=== PATIENT | male | born 1995 | race Two or more races ===

== ENCOUNTER 2016-05-12 02:16 | Emergency (ER) | payer SELFPAY ==
[2016-05-12] MEDS ORDERED: IPRATROPIUM/ALBUTEROL SULFATE 3 ML AMPUL.NEB NEB ONE ×2 (02:19→02:20)
--- NOTE | 2016-05-12 02:23 | ED Physician Documentation ---
General Adult - HISTORIAN Historian: patient - HPI Stated Complaint: sob Chief Complaint: General Adult Additional Information: Known asthmatic with wheezing for two days. Fever last night to 101.5. Back sore , tight, he thinks from coughing. Last albuterol neb 30 minutes ago and it didn' t help. No hospitalizations, intubations, for asthma. - ROS CONST: fever - PAST HX Past History: asthma Other History: none Surgeries/Procedures: none Allergies/Adverse Reactions: Allergies Allergy/AdvReac Type Severity Reaction Status Date / Time No Known Allergies Allergy Verified 05/12/16 02:26 Home Medications: Ambulatory Orders Medication Instructions Recorded Albuterol Sulfate [Proair HFA] 1 inh INH DIRECTED PRN 05/12/16 Albuterol Sulfate [Ventolin HFN] 1 appl INH DIRECTED PRN 05/12/16 predniSONE [Deltasone] 10 mg PO DAILY #6 tablet 05/12/16 - SOCIAL HX Smoking History: non-smoker Alcohol Use: none Drug Use: none - FAMILY HX Family History: No - REVIEWED ASSESSMENTS Nursing Assessment Reviewed: Yes Vitals Reviewed: Yes Progress - Progress Progress: Chest 2 views History: Fever and asthma Findings: The lungs are clear. No pleural effusions are observed. Heart size and pulmonary vascularity are normal. Osseous structures are unremarkable. Impression: Normal chest. Electronically signed on May 12, 2016 2:55:33 AM FILTER OPERATOR by: Vince Briggs Moving much more air, less wheezing after nebs. Feels he is improved enough to go home. ED Results Lab/Radiology - Orders Orders: ED Orders Category Date Time Status CHEST P.A.&LAT 2 VIEWS [RAD] Stat Exams 05/12/16 Ordered GRP A STREP SCREEN Stat Lab 05/12/16 Ordered INFLUENZA A&B Stat Lab 05/12/16 Uncollected Ipratropium/Albuterol Sulfate [Duoneb] Med 05/12/16 02:19 Discontinued 3 ml NEB .STK-MED ONE Ipratropium/Albuterol Sulfate [Duoneb] Med 05/12/16 02:20 Once 3 ml NEB NOW ONE General Adult Physical Exam - PHYSICAL EXAM GENERAL APPEARANCE: mild distress EENT: eye inspection normal, ENT inspection normal, pharyngeal erythema NECK: normal inspection, supple RESPIRATORY: breath sounds normal (but decreased throughout), wheezes ( throughout, moderate pitch) CVS: reg rate & rhythm, no murmur RECTAL: deferred BACK: normal inspection SKIN: warm/dry, normal color EXTREMITIES: normal range of motion (gait ), no evidence of injury NEURO: CN's nml as tested, motor nml, sensation nml, cognition normal Discharge Clincal Impression: Asthma attack Additional Instructions: Return to the ER with increased difficulty breathing. Home Medications: Ambulatory Orders Albuterol Sulfate [Proair HFA] 1 inh INH DIRECTED PRN 05/12/16 Albuterol Sulfate [Ventolin HFN] 1 appl INH DIRECTED PRN 05/12/16 predniSONE [Deltasone] 10 mg PO DAILY #6 tablet 05/12/16 Condition: Good Disposition: 01 HOME, SELF-CARE Decision to Admit: NO Decision Time: 03:03
[2016-05-12] MEDS ORDERED: BUDESONIDE 0.5MG/2ML AMPUL.NEB NEB ONE (02:24)
[2016-05-12] MEDS ORDERED: predniSONE 10 MG TABLET PO ONE (02:24)
[2016-05-12 03:22] VITALS: BP 145/75
--- NOTE | 2016-05-12 06:44 | Diagnostic Imaging Report ---
Report Submission Date: May 12, 2016 2:55:[address] Patient ~ Study Name: STEFF ORTIZ ~ Date: May 12, 2016 2:37:[address] ~ Modality Type: CR Gender: M ~ Description: CHEST : 89 ~ Institution: [facility] Physician: RAHUL HOWELL ~ ~ ~ ~ Chest 2 views History: Fever and asthma Findings: The lungs are clear. No pleural effusions are observed. Heart size and pulmonary vascularity are normal. Osseous structures are unremarkable. Impression: Normal chest. ~ Electronically signed on May 12, 2016 2:55:[address] by: Vince SORENSEN
== END 2016-05-12 03:10 | disposition home or self-care (01) ==
LOC: ED 02:16
DX: J45.909 Unspecified asthma, uncomplicated (principal)
CPT/HCPCS: 71020; 87070; 87400; 87880; 99282; 99283; J7626; J7512

== ENCOUNTER 2017-03-10 21:53 | Emergency (ER) | payer OTHER ==
[2017-03-10] MEDS ORDERED: ALBUTEROL SULFATE 2.5 MG/3 ML AMPUL.NEB NEB ONE ×2 (22:00)
[2017-03-10] MEDS ORDERED: SODIUM CHLORIDE 3 ML VIAL.NEB IH ONE (22:00)
--- NOTE | 2017-03-10 22:18 | ED Physician Documentation ---
Wheezing - HISTORIAN Historian: patient - HPI Stated Complaint: "SOA" Chief Complaint: Wheezing Onset: days ago Duration: worse Initiating Event: out of meds (advair) Associated Symptoms:: shortness of breath Further Comments: yes (21 year old male patient presents with complaints of wheezing. States he is out of his advair, reports using his nebulizer earlier today "it didn't help". 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 Patient states he is out of his advair, does not take a daily allergy medication.) - ROS CONST: no problems EYES/ENT: denies: eye redness, eye itching, sore throat, runny nose, other CVS: denies: heart racing, palpitations, other GI/: denies: none, abdominal pain, problems urinating, vomiting, nausea, other MS/SKIN/LYMPH: denies: ankle swelling, leg pain, rash, swollen glands, leg swelling, calf pain, other NEURO/PSYCH: denies: headache, dizziness, light-headedness, anxiety, tingling hands, muscle spasms hands, tingling face, muscle spasms face, other - PAST HX Asthma: occasional attacks Lung Disease: asthma Surgeries/Procedures: none Allergies/Adverse Reactions: Allergies Allergy/AdvReac Type Severity Reaction Status Date / Time No Known Allergies Allergy Verified 03/10/17 22:04 Home Medications: Ambulatory Orders Medication Instructions Recorded Albuterol Sulfate [Proair HFA] 1 inh INH DIRECTED PRN 05/12/16 Albuterol Sulfate [Ventolin HFN] 1 appl INH DIRECTED PRN 05/12/16 Albuterol Sulfate [ProAir 1 puff INH Q4H PRN #1 inhaler 03/10/17 RespiClick] Fluticasone/Salmeterol [Advair 1 each IH DAILY 03/10/17 100-50 Diskus] - SOCIAL HX Smoking History: non-smoker - FAMILY HX Family History: denies: emphysema - VITAL SIGNS Vital Signs: Vital Signs Temp Pulse Resp BP Pulse Ox 98.6 F 100 H 16 142/78 95 03/10/17 21:53 03/10/17 21:53 03/10/17 21:53 03/10/17 21:53 03/10/17 21:53 - REVIEWED ASSESSMENTS Nursing Assessment Reviewed: Yes Vitals Reviewed: Yes Wheezing Physical Exam - EXAM General Appearance: mild distress EENT: eye inspection normal, MIHIR Respiratory: no pain on inspiration, speaks full sentences, wheezes (faint expiratory ), no pleuritic chest pain CVS: reg rate & rhythm, heart sounds normal, equal pulses, no murmur, no gallop , PMI nml, no JVD, no friction rub, 24 Abdomen: non-tender, no organomegaly, nml bowel sounds, no distention Skin: color nml, no rash, warm, nml palp., dry Extremities: non-tender, normal range of motion, no evidence of injury, no edema , J, 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 Neuro/Psych: oriented x3, neuro intact, mood/affect nml, CN's nml as tested ED Results Lab/Radiology - Orders Orders: ED Orders Category Date Time Status Albuterol Sulfate [Ventolin] Med 03/10/17 22:00 Discontinued 2.5 mg NEB .STK-MED ONE Sodium Chloride For Inhalation [Dey] Med 03/10/17 22:00 Discontinued 3 ml IH .STK-MED ONE Discharge Clincal Impression: Asthma exacerbation Qualifiers: Asthma severity: mild Asthma persistence: unspecified Qualified Code(s): J45.901 - Unspecified asthma with (acute) exacerbation Prescriptions: Albuterol Sulfate [ProAir RespiClick] 1 puff INH Q4H PRN #1 inhaler PRN Reason: Wheezing Referrals: Primary Doctor,No [Primary Care Provider] - 2 Days Condition: Stable Disposition: 01 HOME, SELF-CARE Decision to Admit: NO Decision Time: 22:30
[2017-03-10 22:48] VITALS: BP 140/78
== END 2017-03-10 22:28 | disposition home or self-care (01) ==
LOC: ED 21:53
DX: J45.901 Unspecified asthma with (acute) exacerbation (principal)
CPT/HCPCS: 99283

== ENCOUNTER 2017-08-06 08:10 | Emergency (ER) | payer OTHER ==
[2017-08-06] MEDS ORDERED: IPRATROPIUM/ALBUTEROL SULFATE 3 ML AMPUL.NEB NEB ONE ×2 (08:16→08:55)
[2017-08-06] MEDS ORDERED: BUDESONIDE 0.5MG/2ML AMPUL.NEB NEB ONE ×2 (08:18→08:19)
[2017-08-06] MEDS ORDERED: predniSONE 10 MG TABLET PO ONE (08:18)
--- NOTE | 2017-08-06 08:23 | ED Physician Documentation ---
General Adult - HISTORIAN Historian: patient - HPI Stated Complaint: asthma Chief Complaint: General Adult Additional Information: wheezing for two days. Has had two duonebs this am but no better; last one at 0730. Denies fevers, sweats. Has seasonal allergies and takes daily advair and claritin. Thinks he has sinus congestion now. HX two hospitalizations for asthma ; no intubation. - ROS CONST: denies: fever, sweating - PAST HX Past History: asthma Other History: none Surgeries/Procedures: none Allergies/Adverse Reactions: Allergies Allergy/AdvReac Type Severity Reaction Status Date / Time No Known Allergies Allergy Verified 08/06/17 08:27 Home Medications: Ambulatory Orders Medication Instructions Recorded Albuterol Sulfate [Proair HFA] 1 inh INH DIRECTED PRN 05/12/16 Albuterol Sulfate [Ventolin HFN] 1 appl INH DIRECTED PRN 05/12/16 Albuterol Sulfate [ProAir 1 puff INH Q4H PRN #1 inhaler 03/10/17 RespiClick] Fluticasone/Salmeterol [Advair 1 each IH DAILY 03/10/17 100-50 Diskus] Azithromycin [Zithromax] 250 mg PO DAILY #6 tablet 08/06/17 Fluticasone/Salmeterol [Advair 1 each INH DAILY #1 ea 08/06/17 250-50 Diskus] predniSONE [Deltasone] 20 mg PO DAILY #7 tablet 08/06/17 - SOCIAL HX Smoking History: non-smoker - FAMILY HX Family History: No - VITAL SIGNS Vital Signs: Vital Signs Temp Pulse Resp BP Pulse Ox 140/78 03/10/17 22:28 - REVIEWED ASSESSMENTS Nursing Assessment Reviewed: Yes Vitals Reviewed: Yes Progress - Progress Progress: Patient Study Name: STEFF ORTIZ Date: Aug 06, 2017 8:31:44 AM CDT Modality Type: DX Gender: M Description: CHEST : 89 Institution: [facility] Physician: LYNDA KAY - LANETTE Examination: PA and lateral chest. History: Evaluate lung dalton. CXR, SOA/ WHEEZING FOR OVER A WEEK, PT STATES HX OF ASTHMA AND USE OF INHALER (Hx) Comparison exam: 12 May 2016 Findings: PA lateral chest demonstrate a normal cardiac and mediastinal silhouette. No focal infiltrate. No blunting of the costophrenic margins. Osseous structures are appropriate for age. Impression: No acute pulmonary process. Electronically signed on Aug 06, 2017 8:52:08 AM CDT by: Brown Mishra Feels better after budesonide neb. ED Results Lab/Radiology - Orders Orders: ED Orders Category Date Time Status CHEST 2VIEW [RAD] Stat Exams 08/06/17 Ordered Budesonide [Pulmicort] Med 08/06/17 08:18 Discontinued 0.5 mg NEB .STK-MED ONE Budesonide [Pulmicort] Med 08/06/17 09:00 Ordered 0.5 mg NEB BID Budesonide [Pulmicort] Med 08/06/17 08:19 Discontinued 0.5 mg NEB BID ONE Ipratropium/Albuterol Sulfate [Duoneb] Med 08/06/17 08:16 Discontinued 3 ml NEB .STK-MED ONE predniSONE [Deltasone] Med 08/06/17 08:18 Discontinued 10 mg PO NOW ONE General Adult Physical Exam - PHYSICAL EXAM GENERAL APPEARANCE: mild distress EENT: eye inspection normal, ENT inspection normal, pharynx normal (Mallampati 2 ) NECK: normal inspection, supple RESPIRATORY: wheezes (fine, throughout), other (decreased throughout) CVS: reg rate & rhythm, heart sounds normal, no murmur BACK: normal inspection, no CVA tenderness (no vertebral tenderness) SKIN: warm/dry, normal color EXTREMITIES: normal range of motion (gait and stance), no evidence of injury NEURO: CN's nml as tested, motor nml, sensation nml, cognition normal Discharge Clincal Impression: Wheezing Referrals: Primary Doctor,No [Primary Care Provider] - 2 Days Additional Instructions: Drink plenty of water. Return to the ER if your condition worsens. Condition: Good Disposition: 01 HOME, SELF-CARE Decision to Admit: NO Decision Time: 08:55
[2017-08-06] MEDS ORDERED: BUDESONIDE 0.5MG/2ML AMPUL.NEB NEB SCH (09:00)
[2017-08-06 09:33] VITALS: BP 132/69
--- NOTE | 2017-08-06 19:01 | Diagnostic Imaging Report ---
LYNDA KAY [facility] [address] [facility] [address] [place] [address]. [id number] Report Submission Date: Aug 06, 2017 8:52:08 AM CDT Patient Study Name: STEFF ORTIZ Date: Aug 06, 2017 8:31:44 AM CDT Modality Type: DX Gender: M Description: CHEST : 89 Institution: [facility] Physician: LYNDA KAY Examination: PA and lateral chest. History: Evaluate lung dalton. CXR, SOA/ WHEEZING FOR OVER A WEEK, PT STATES HX OF ASTHMA AND USE OF INHALER (Hx) Comparison exam: 12 May 2016 Findings: PA lateral chest demonstrate a normal cardiac and mediastinal silhouette. No focal infiltrate. No blunting of the costophrenic margins. Osseous structures are appropriate for age. Impression: No acute pulmonary process. Electronically signed on Aug 06, 2017 8:52:08 AM CDT by: Brown SORENSEN
== END 2017-08-06 09:25 | disposition home or self-care (01) ==
LOC: ED 08:10
DX: R06.2 Wheezing (principal)
CPT/HCPCS: 71046; J7512; J7626; 94640; 99284

== ENCOUNTER 2018-01-04 15:30 | Emergency (ER) | payer SELFPAY ==
[2018-01-04] MEDS ORDERED: IPRATROPIUM/ALBUTEROL SULFATE 3 ML AMPUL.NEB NEB ONE (16:08)
[2018-01-04] MEDS ORDERED: methylPREDNISolone SOD SUCC 125 MG/2 ML VIAL IM ONE (16:20)
--- NOTE | 2018-01-04 16:26 | ED Physician Documentation ---
Sore Throat/Dental Pain - HISTORIAN Historian: patient - HPI Stated Complaint: sore throat Chief Complaint: Sore Throat Onset: days ago (4) Associated Symptoms: fever, chills, sore throat, mild, cough (occasional ). denies: severe, unable to swallow, runny nose, congestion, R ear pain, L ear pain - ROS CONST: recent illness CVS/RESP: none. 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 pt presents to the ED via POV c/o sore throat, fever 102 x 4 days. pt reports hx of asthma for which he takes albuterol Neb/ Inhaler, advair once a day. pt reports his asthma is a bit worse than usual. pt is eupneic, VSS at this time. 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 pt presents to the ED via POV c/o sore throat, fever 102 x 4 d ays. pt reports hx of asthma for which he takes albuterol Neb/ Inhaler, advair once a day. pt reports his asthma is a bit worse than usual. pt is eupneic, VSS at this time. 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 (Lalitha Greer) - PAST HX Allergies/Adverse Reactions: Allergies Allergy/AdvReac Type Severity Reaction Status Date / Time No Known Allergies Allergy Verified 01/04/18 16:42 Home Medications: Ambulatory Orders Medication Instructions Recorded Albuterol Sulfate [Ventolin HFN] 1 appl INH DIRECTED PRN 05/12/16 Albuterol Sulfate [Proair HFA] 1 puff IH PRN PRN 01/04/18 Albuterol Sulfate [Ventolin HFN] 2.5 mg NEB Q4 #60 vial 01/04/18 Cephalexin [Keflex] 500 mg PO 12HS #20 capsule 09/25/18 Prednisone 10 mg PO 1T 6 Days tab.ds.pk 01/04/18 - VITAL SIGNS Vital Signs: Vital Signs Temp Pulse Resp BP Pulse Ox 99.3 F 92 H 16 128/74 97 01/04/18 15:31 01/04/18 18:20 01/04/18 18:20 01/04/18 18:20 01/04/18 18:20 Progress - Progress Progress: 1625 Post DuoNeb Pt wheezing decreased. (Saad Aguayo) 1625 Post DuoNeb Pt wheezing decreased. CXR: No acute cardiopulmonary process. (Lalitha Greer) ED Results Lab/Radiology - Radiology Radiology Impressions: Examination: PA and lateral chest. History: Evaluate lung dalton. COUGH X 4 DAYS ASTHMA SOA (Hx) Comparison exam: 06 August 2017 Findings: PA and lateral views of the chest demonstrates a normal cardiac and mediastinal silhouette. No focal infiltrate. No blunting of the costophrenic margins. Osseous structures are appropriate for age. Impression: No acute pulmonary process. (Saad Aguayo) Examination: PA and lateral chest. History: Evaluate lung dalton. COUGH X 4 DAYS ASTHMA SOA (Hx) Comparison exam: 06 August 2017 Findings: PA and lateral views of the chest demonstrates a normal cardiac and mediastinal silhouette. No focal infiltrate. No blunting of the costophrenic margins. Osseous structures are appropriate for age. Impression: No acute pulmonary process. (Lalitha Greer) - Orders Orders: ED Orders Category Date Time Status CHEST 2VIEW [RAD] Stat Exams 01/04/18 Completed Ipratropium/Albuterol Sulfate [Duoneb] Med 01/04/18 16:08 Discontinued 3 ml NEB NOW ONE methylPREDNISolone SOD SUCC [Solu-MEDROL] Med 01/04/18 16:20 Discontinued 125 mg IM NOW ONE HI FLOW NEBULIZER TX - INITIAL Routine Ther 01/04/18 Completed HIGH FLOW NEBULIZER Routine Ther 01/04/18 Completed OXIMETRY-SINGLE CHECK Routine Ther 01/04/18 Completed Sore throat Physical Exam - EXAM General Appearance: no acute distress, alert Head/Neck: trachea midline, cervical lymphadenopathy. No: pain over sinuses, maxillary swelling (R), maxillary swelling (L), neck mass/swelling, stiff neck, pain on palpation (R), pain on palpation (L) Eyes: eyes nml inspection Mouth/Throat: lips nml, gums nml, pharyngeal erythema, tonsillar exudate, tonsillar swelling Ear/Nose: nml inspection Respiratory: no resp. distress, wheezes CVS: reg. rate & rhythm, tachycardia Abdomen: soft, no organomegaly, normal bowel sounds Extremities: non-tender Skin: warm/dry Neuro/Psych: oriented x3 Discharge Decision to Admit: NO Date of Decison to Admit: 01/04/18 Decision Time: 17:10 Clincal Impression: Acute exacerbation of mild persistent extrinsic asthma Prescriptions: Albuterol Sulfate [Ventolin HFN] 2.5 mg NEB Q4 #60 vial Cephalexin [Keflex] 500 mg PO 12HS #20 capsule Prednisone 10 mg PO 1T 6 Days tab.ds.pk Referrals: Primary Doctor,No [Primary Care Provider] - 2 Days Additional Instructions: increase advair to twice a day rest increase fluids Seek medical care if worsening symptoms: increased shortness of breath, chest pain, feeling faint or passing out, or any concern Prednisone dose pack: take taper fashion as directed on package Keflex 500 mg twice a day for 10 days albuterol nebs q 4 hrs PRN shortness of breath Follow up with primary care in one week or before if worse Condition: Good Disposition: 01 HOME, SELF-CARE
--- NOTE | 2018-01-04 17:48 | Diagnostic Imaging Report ---
ALFREDITO MCCRACKEN [facility] [address] [facility] [address] [address] Report Submission Date: Jan 04, 2018 4:58:07 PM CDT Patient Study Name: STEFF ORTIZ Date: Jan 04, 2018 4:32:33 PM CDT Modality Type: DX Gender: M Description: CHEST : 89 Institution: [facility] Physician: ALFREDITO MCCRACKEN Examination: PA and lateral chest. History: Evaluate lung dalton. COUGH X 4 DAYS ASTHMA SOA (Hx) Comparison exam: 06 August 2017 Findings: PA and lateral views of the chest demonstrates a normal cardiac and mediastinal silhouette. No focal infiltrate. No blunting of the costophrenic margins. Osseous structures are appropriate for age. Impression: No acute pulmonary process. Electronically signed on Jan 04, 2018 4:58:07 PM CDT by: Brown SORENSEN
[2018-01-04 18:21] VITALS: BP 128/74
== END 2018-01-04 17:30 | disposition home or self-care (01) ==
LOC: ED 15:30
DX: J45.31 Mild persistent asthma with (acute) exacerbation (principal); J02.9 Acute pharyngitis, unspecified
CPT/HCPCS: 71046; 94640; 94760; J2930; 96372; 99283

== ENCOUNTER 2019-02-21 16:32 | Emergency (ER) | payer OTHER ==
[2019-02-21] MEDS: IPRATROPIUM/ALBUTEROL SULFATE 3 ML AMPUL.NEB NEB ONE ×2 (16:45→16:58)
[2019-02-21] MEDS: methylPREDNISolone SOD SUCC 125 MG/2 ML VIAL IVP ONE (16:48)
[2019-02-21 16:52] LABS: BASOPHILS % 0.9 % (0.0-1.5); NEUTROPHILS # 4.7 # k/uL (1.4-7.7)
[2019-02-21 16:57] VITALS: BP 141/82
[2019-02-21 17:05] LABS: eGFR (Non-African) > 60
--- NOTE | 2019-02-21 17:08 | Diagnostic Imaging Report ---
PATIENT MR#: [id number] PATIENT PATIENT NAME: STEFF ORTIZ DATE OF : 1995 REFERRING PHYSICIAN: Key Li EXAM DATE: 02/21/2019 ACCESSION NUMBER: [id number] EXAM DESCRIPTION: CHEST 2VIEW Examination: PA and lateral chest. History: Evaluate lung dalton. The comparison exam: 04 January 2018 Findings: PA and lateral views of the chest demonstrates a normal cardiac and mediastinal silhouette. No focal infiltrate. No blunting of the costophrenic margins. Osseous structures are appropriate for age. Impression: No acute pulmonary process. Read by: Dr. Brown Mishra Transcribed by: Transcribed Date: Electronically signed by: Dr. Brown Mishra Date signed: 02/21/2019 5:07:39 PM
--- NOTE | 2019-02-21 17:12 | ED Physician Documentation ---
Asthma - HISTORIAN Historian: patient - HPI Stated Complaint: SOA Chief Complaint: Asthma Onset: days ago (3) Duration: continues in ED Initiating Event: upper respiratory illness (recently stopped a zpack for broncitits ) Associated Symptoms:: shortness of breath, tightness. denies: fever, sweating, trouble breathing, hurts to breath, productive cough, chest discomfort, chest pain Current Asthma Therapy: inhaled MDI, albuterol inhaler Further Comments: yes (He reports about one month ago he was started on zpack for bronchtitis he is a know asthmatic and denies any fever) - ROS CONST: recent illness GI/: none NEURO/PSYCH: denies: headache - PAST HX Asthma: frequent attacks Lung Disease: asthma DVT/PE Risk Factors: none Other History: denies: cardiac disease, CHF, CAD, angina, AMI, diabetes Type 1, diabetes Type 2 Surgeries/Procedures: none Immunizations: UTD Allergies/Adverse Reactions: Allergies Allergy/AdvReac Type Severity Reaction Status Date / Time No Known Allergies Allergy Verified 02/21/19 16:51 Home Medications: Ambulatory Orders Medication Instructions Recorded Albuterol Sulfate [Ventolin HFN] 1 appl INH DIRECTED PRN 05/12/16 Albuterol Sulfate [Proair HFA] 1 puff IH PRN PRN 01/04/18 Albuterol Sulfate [Ventolin HFN] 2.5 mg NEB Q4 #60 vial 01/04/18 - SOCIAL HX Smoking History: non-smoker Alcohol Use: none Drug Use: none - FAMILY HX Family History: denies: emphysema, asthma, CAD - VITAL SIGNS Vital Signs: Vital Signs Temp Pulse Resp BP Pulse Ox 98.3 F 85 16 141/82 98 02/21/19 16:32 02/21/19 16:32 02/21/19 16:32 02/21/19 16:32 02/21/19 16:32 - REVIEWED ASSESSMENTS Nursing Assessment Reviewed: Yes Vitals Reviewed: Yes Progress - Progress Progress: 1710: continued mild wheezing on left lower lobe - he feels that it is helping DG 1735: discussed results and plan he is agreeable DG ED Results Lab/Radiology - Lab Results Lab Results: Lab Results 02/21/19 02/21/19 16:46 16:46 WBC 9.00 K/ul K/ul (4.00-12.00) RBC 5.36 M/ul H M/ul (3.90-5.20) Hgb 17.4 g/dL g/dL (12.0-18.0) Hct 51.9 % % (37.0-53.0) MCV 97.0 fl fl (80.0-100.0) MCH 32.4 pg pg (28.0-34.0) MCHC 33.5 g/dL g/dL (30.0-36.0) RDW 11.1 % L % (11.3-14.3) Plt Count 274 K/mm3 K/mm3 (130-400) Neut % (Auto) 52.0 % % (39.0-79.0) Lymph % (Auto) 32.4 % % (16.0-50.0) Amelia % (Auto) 6.0 % % (0.0-11.0) Eos % (Auto) 8.7 % H % (0.0-6.8) Baso % (Auto) 0.9 % % (0.0-1.5) Neut # (Auto) 4.7 # k/uL # k/uL (1.4-7.7) Lymph # (Auto) 2.9 # k/uL # k/uL (0.6-4.0) Amelia # (Auto) 0.5 # k/uL # k/uL (0.0-0.9) Eos # (Auto) 0.8 # k/uL H # k/uL (0.0-0.6) Baso # (Auto) 0.1 # k/uL # k/uL (0.0-0.5) Sodium 142 mmol/L mmol/L (137-145) Potassium 4.0 mmol/L mmol/L (3.5-5.1) Chloride 103 mmol/L mmol/L (98-107) Carbon Dioxide 28 mmol/L mmol/L (22-30) Anion Gap 15.0 BUN 10 mg/dL mg/dL (9-20) Creatinine 0.82 mg/dL mg/dL (0.66-1.25) Estimated Creat Clear 169 Est GFR ( Amer) > 60 (60 - ) Est GFR (Non-Af Amer) > 60 (60 - ) Glucose 99 mg/dL mg/dL (74-106) Calcium 9.8 mg/dL mg/dL (8.4-10.2) Total Bilirubin 0.5 mg/dL mg/dL (0.2-1.3) AST 66 U/L H U/L (15-46) ALT 121 U/L H U/L (0-50) Alkaline Phosphatase 107 U/L U/L (38-126) Total Protein 8.5 g/dL H g/dL (6.3-8.2) Albumin 4.7 g/dL g/dL (3.5-5.0) - Orders Orders: ED Orders Category Date Time Status IV Started NOW Care 02/21/19 16:39 Active CHEST 2VIEW [RAD] Stat Exams 02/21/19 Completed CBC/PLATELET/DIFF Stat Lab 02/21/19 16:46 Completed CMP Stat Lab 02/21/19 16:46 Completed Ipratropium/Albuterol Sulfate [Duoneb] Med 02/21/19 16:35 Discontinued 3 ml NEB .STK-MED ONE Ipratropium/Albuterol Sulfate [Duoneb] Med 02/21/19 16:38 Discontinued 3 ml NEB NOW ONE methylPREDNISolone SOD SUCC [SOLU-Medrol] Med 02/21/19 16:38 Discontinued 125 mg IVP NOW ONE Asthma Physical Exam - EXAM General Appearance: no acute distress, alert EENT: eye inspection normal, ENT inspection normal, pharynx normal, no signs of dehydration Neck: nml inspection Respiratory: no resp. distress, speaks full sentences, wheezes. No: no pain on inspiration, respiratory distress CVS: reg rate & rhythm, heart sounds normal Abdomen: non-tender Skin: color nml, no rash Extremities: non-tender, normal range of motion, no evidence of injury, no edema Neuro/Psych: oriented x3 Discharge Clincal Impression: Wheezing Referrals: Primary Doctor,No [Primary Care Provider] - 2 Days Comments: 1. Prednisone 20 mg take 1 by mouth daily x 5 days and 10 mg daily x 5 days and 5 mg daily x 5 days 2. Follow up with PCP in 2-4 days 3. Return to ER for any increased concerns Condition: Stable Disposition: 01 HOME, SELF-CARE Decision to Admit: NO Date of Decison to Admit: 02/21/19 Decision Time: 17:40
[2019-02-21] MEDS: ALBUTEROL SULFATE 2.5 MG/3 ML AMPUL.NEB NEB ONE (17:20)
== END 2019-02-21 17:59 | disposition home or self-care (01) ==
LOC: ED 16:32
DX: R06.2 Wheezing (principal)
CPT/HCPCS: 71046; 80053; 85025; 94640; 96374; 99282; 99284; J2930; S1016